=== PATIENT | female | born 1965 | race African-American/Black ===

== ENCOUNTER 2016-10-28 12:45 | Emergency (ER) | payer OTHER ==
[~2016-10-28] VITALS: Ht 160 cm; Wt 83.5 kg
[2016-10-28] MEDS ORDERED: AMLO2.5T PO (12:53)
[2016-10-28] MEDS ORDERED: DULO20CA30 PO (12:55)
[2016-10-28] MEDS ORDERED: HYDR200T4 PO (12:55)
[2016-10-28] MEDS ORDERED: METF500T4 PO (12:55)
[2016-10-28] MEDS ORDERED: LOSA25TA21 PO (12:55)
[2016-10-28] MEDS ORDERED: ATOR10TA84 PO (12:55)
[2016-10-28 13:01] LABS: GLUCOSE,POINT OF CARE 111 MG/DL (70-110)
[2016-10-28 13:53] LABS: BASOPHILS % (AUTO) 1.5 % (0.0-2.0); EOSINOPHILS % (AUTO) 1.7 % (1.0-6.0); HEMATOCRIT 41.9 % (36-46); HEMOGLOBIN 13.3 g/dL (12.0-16.0); LYMPHOCYTES % (AUTO) 33.8 % (22.0-44.0); MEAN CORPUSCULAR HEMOGLOBIN 24.2 pg (26.0-34.0); MEAN CORPUSCULAR HGB CONC 31.7 G/dL (31.0-37.0); MEAN CORPUSCULAR VOLUME 76 fL (80-100); MONOCYTES # (AUTO) 0.4 K/uL (0.1-1.0); MONOCYTES % (AUTO) 4.5 % (2.0-9.0); NEUTROPHILS # (AUTO) 5.1 K/uL (1.8-7.7); NEUTROPHILS % (AUTO) 58.5 % (40.0-70.0); PLATELET COUNT (AUTO) 426 K/uL (150-450); WHITE BLOOD COUNT (AUTO) 8.8 K/uL (4.5-11.0)
[2016-10-28 14:08] LABS: RBC MORPHOLOGY COMMENT ABNORMAL RBC MORPH
[2016-10-28 14:49] LABS: ANION GAP 10 mmol/L (8-16); CARBON DIOXIDE 30 mmol/L (22-29); CHLORIDE 104 mmol/L (98-107); CREATININE 0.71 mg/dL (0.60-1.30); GLOMERULAR FILTR. RATE CALC > 60 mL/min (>60); POTASSIUM 3.9 mmol/L (3.5-5.1); SODIUM SERUM 144 mmol/L (136-145); UREA NITROGEN, BLOOD 6 mg/dL (7-18)
[2016-10-28 14:55] LABS: ALANINE AMINOTRANSFERASE 29 U/L (12-78); ALBUMIN 4.1 g/dL (3.4-5.0); ASPARTATE AMINOTRANSFERASE 11 U/L (15-37); BILIRUBIN,TOTAL 0.3 mg/dL (0.1-1.0); TOTAL PROTEIN, SERUM 8.6 g/dL (6.4-8.2)
[2016-10-28] MEDS ORDERED: MECLIZINE HCL 25 MG TABLET PO ONE (16:00)
[2016-10-28] MEDS ORDERED: ACETAMINOPHEN 500 MG TABLET PO ONE (16:00)
[2016-10-28 16:20] VITALS: BP 113/70
== END 2016-10-28 16:50 | disposition home or self-care (01) ==
LOC: EMS 12:48
DX: R42 Dizziness and giddiness (principal); E11.9 Type 2 diabetes mellitus without complications; I10 Essential (primary) hypertension
CPT/HCPCS: 82962; 99284